=== PATIENT | female | born 1990 | race Caucasian/White ===

== ENCOUNTER 2019-09-01 00:02 | Emergency (ER) | payer OTHER ==
[~2019-09-01] VITALS: Ht 154.9 cm; Wt 76.2 kg
[2019-09-01 00:09] VITALS: Ht 154.9 cm; Wt 76.2 kg
[2019-09-01 01:17] LABS: CALCIUM 8.9 mg/dL (8.5-10.1); CARBON DIOXIDE 26.1 mmol/L (21-32); CHLORIDE SERUM 104 mmol/L (98-107); CREATININE SERUM 0.5 mg/dL (0.6-1.0); GFR1 > 60 mL/min; GLUCOSE SERUM 100 mg/dL (74-106); POTASSIUM SERUM 4.1 mmol/L (3.5-5.1); SODIUM SERUM 138 mmol/L (136-145)
[2019-09-01 01:27] LABS: BASOPHIL % 1.8 % (0-2); PLATELET COUNT 302 x10^3mcL (130-400); RED CELL DISTRIBUTION WIDTH 11.8 % (11.5-14.5)
[2019-09-01 01:32] LABS: ALBUMIN 3.8 g/dL (3.4-5.0); ALKALINE PHOSPHATASE 89 U/L (46-116); ALT/SGPT 23 U/L (14-59); AST/SGOT 10 U/L (15-37); BILIRUBIN TOTAL 0.23 mg/dL (0.20-1.00)
[2019-09-01 02:13] VITALS: BP 104/79
== END 2019-09-01 02:13 | disposition home or self-care (01) ==
LOC: ED 00:02
PROVIDERS: Emergency Medicine
DX: R06.00 Dyspnea, unspecified (principal)
CPT/HCPCS: 36415; Q0092